=== PATIENT | female | born 1970 | race Caucasian/White ===

== ENCOUNTER 2017-09-24 08:10 | Day surgery (SDC) | payer OTHER ==
--- OUTSIDE RECORDS SUMMARY | 2017-09-24 08:13 | XMS REPORT | Clinical Summary ---
:1970 Author Organization [facility] Address [address] [place] [id number] Care Team Providers Name Role Phone Marylin Noyola MD Primary Care Provider Allergies No Known Allergies Current Medications Prescription Sig. Disp. Refills Start Date End Date Status buPROPion SR (WELLBUTRIN Take 450 mg by Active SR) 150 MG 12 hr tablet mouth every morning. Bifidobacterium infantis Take 1 capsule by Active (ALIGN) 4 mg capsule mouth every morning. 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
[2017-09-24] MEDS ORDERED: SCOPOLAMINE HYDROBROMIDE PATCH TD ONE (08:23)
[2017-09-24] MEDS ORDERED: Ringers Lactate 1,000 ML IV ONE (08:23)
[2017-09-24] MEDS ORDERED: CEFAZOLIN/SWI 1gm 1 GM/10 ML SYR ONE (08:24)
[2017-09-24 08:40] LABS: Specific Gravity 1.025 (1.005-1.030)
[2017-09-24] MEDS ORDERED: PROPOFOL 200 MG/20 ML VIAL IV ONE (08:57)
[2017-09-24] MEDS ORDERED: MIDAZOLAM HCL 2 MG/2 ML INJ ONE (08:57)
[2017-09-24] MEDS ORDERED: FENTANYL CITR 100 MCG/2 ML ONE (08:57)
[2017-09-24] MEDS ORDERED: LIDOCAINE 1% MPF 5 ML VIAL ONE (08:57)
[2017-09-24] MEDS ORDERED: KETOROLAC 30 MG/ML INJ ONE (09:31)
[2017-09-24] MEDS ORDERED: ONDANSETRON 4 MG/2 ML VIAL ONE (09:32)
[2017-09-24] MEDS ORDERED: Mastisol Adhesive Liq ONE (09:42)
[2017-09-24] MEDS ORDERED: LANO/MINERAL OIL/PETRO 3.5 GM ONE (09:47)
[2017-09-24] MEDS ORDERED: MEPERIDINE HCL 25 MG/0.5 ML ONE (10:08)
--- NOTE | 2017-09-24 23:31 | OP ---
Surgeon: Sim Forrest MD Diplomatic Officer: Jeramie. Preoperative Diagnosis: Painful right areolar. Postoperative Diagnosis: Painful right areolar Procedure Performed: Debridement of skin and subcutaneous tissue, excision of cyst. Anesthesia: General. Description Of Procedure: After satisfactory induction of general anesthesia, the right breast was prepped with Betadine scrub, Betadine paint, dry sterile drapes applied in the usual manner. A scalpel was used to make a curvilinear incision at the 6 o'clock position excising the scar from previous breast surgery. Dissection proceeded down. No pus was encountered, but keratin approximately at 7 o'clock position, 0.5 cm in diameter ball. This was excised , taken off the margins, and culture taken. The wound was jet lavaged, irrigated with 2 L of dilute Betadine solution. Electrocautery was used for hemostasis and the wound closed with 4-0 PDS and deep dermis, 4-0 PDS running subcuticular. Dressings of tincture of benzoin, Steri-Strips, 4x4s, and tape. The patient tolerated the procedure well and returned to recovery. YAS/CHELLY Voice ID: [id number] Report ID: [id number]
== END 2017-09-24 11:05 | disposition home or self-care (01) ==
LOC: OR 08:10
PROVIDERS: ATTEND Specialist
PROC: 0HBW0ZZ Excision of Right Nipple, Open Approach (ICD-10-PCS; principal; 2017-09-24 09:00)
DX: N60.01 Solitary cyst of right breast (principal)
CPT/HCPCS: 81025; 87070; 87075; 87077; 87186; 87205; J0690; J2175; J2250; J2405; J3010